=== PATIENT | male | born 1985 | race Caucasian/White ===

== ENCOUNTER → 2017-02-16 | Outpatient (CLI) | payer OTHER ==
--- NOTE | 2017-02-16 21:33 | XR ---
EXAMINATION TYPE: XR ribs LT DATE OF EXAM: 02/16/2017 4:50 PM COMPARISON: NONE HISTORY: Left chest lump TECHNIQUE: 3 views FINDINGS: There is mild linear density at the left lung base there is blunting of left costophrenic a ngle. I see no rib fracture. IMPRESSION: No rib fracture seen. Left pleural effusion and left basilar atelectasis.
--- NOTE | 2017-02-16 21:34 | XR ---
EXAMINATION TYPE: XR chest 2V DATE OF EXAM: 02/16/2017 4:50 PM COMPARISON: NONE HISTORY: Left side chest lump TECHNIQUE: Frontal and lateral views of the chest are obtained. FINDINGS: Heart and mediastinum are normal. There is linear density at the left lung base and blunti ng of left costophrenic angle. There are no hilar masses. I see no rib fracture. There is no pneumoth orax. IMPRESSION: Left pleural effusion and left basilar atelectasis and infiltrate. Normal heart.
== END | disposition home or self-care (01) ==
LOC: RADXRMAIN 16:30
PROVIDERS: ATTEND Family Medicine
DX: J98.11 Atelectasis (principal); J90 Pleural effusion, not elsewhere classified; R91.8 Other nonspecific abnormal finding of lung field
CPT/HCPCS: 71020

== ENCOUNTER → 2017-02-23 | Outpatient (CLI) | payer OTHER ==
--- NOTE | 2017-02-23 10:02 | US ---
EXAMINATION TYPE: US mass soft tissue chest/back DATE OF EXAM: 02/23/2017 9:32 AM COMPARISON: Xrays in PACS CLINICAL HISTORY: M89.9 Rib leison,R07.81 Rib pain left. Pt states hard, palpable lump left anterior chest x 1 month/ Pt denies pain Calcified appearing mass at area of pt's palpable, left anterior chest= 2.1 x 0.8 cm IMPRESSION: Nonspecific calcified mass.
== END | disposition home or self-care (01) ==
LOC: RADUSWWP 09:20
PROVIDERS: ATTEND Family Medicine
DX: R22.2 Localized swelling, mass and lump, trunk (principal)

== ENCOUNTER → 2017-03-08 | Outpatient (CLI) | payer OTHER ==
--- NOTE | 2017-03-09 11:00 | CT ---
EXAMINATION TYPE: CT chest w con DATE OF EXAM: 03/08/2017 7:29 PM COMPARISON: NONE HISTORY: Left sided anterior chest lump marked by BB. CT DLP: 246.00 mGycm, Automated exposure control for dose reduction was used. CONTRAST: Performed injected with 100 mL of Omnipaque 300. TECHNIQUE: Axial images were obtained at 5 mm thick sections. Reconstructed images are reviewed on [employer] computer in the coronal plane. FINDINGS: Portion of the thyroid visualized is normal. There is a small left pleural effusion. There is a small infiltrate at the left base above the diaphr agm most likely is atelectasis. Right lung appears clear. No enlarged mediastinal or hilar adenopathy is evident. The ascending aorta diameter at the level o f the main pulmonary artery is 2.6 cm. The main pulmonary artery diameter at the bifurcation is 2.2 cm. A BB julio the left anterior chest mid region. Pectoralis muscle is at this level. No underlying mass is evident. No abnormal osseous findings. Limited CT sections are obtained through the upper abdomen. Abdomen is essentially unremarkable. IMPRESSIONS: 1. Small left pleural effusion. 2. Atelectasis left base. Pneumonia is considered less likely. 3. No abnormality at the level marked by the BB.
== END ==
LOC: RADCTMAIN 18:59
PROVIDERS: ATTEND Family Medicine
DX: J90 Pleural effusion, not elsewhere classified (principal); J98.11 Atelectasis
CPT/HCPCS: 71260; Q9967

== ENCOUNTER → 2020-07-09 | Outpatient (CLI) | payer BC, OTHER | END | disposition home or self-care (01) | LOC: LABWHC1 10:42 | PROVIDERS: ATTEND Emergency Medicine | DX: Z20.828 Contact with and (suspected) exposure to other viral communicable diseases (principal) | CPT/HCPCS: U0003; C9803 ==

== ENCOUNTER 2020-08-19 20:57 | Emergency (ER) | payer BC ==
[2020-08-19 21:16] VITALS: RESP 20
--- NOTE | 2020-08-19 22:14 | XR ---
EXAMINATION TYPE: XR foot complete RT DATE OF EXAM: 08/19/2020 COMPARISON: NONE HISTORY: Foot pain TECHNIQUE: 3 views FINDINGS: There is nondisplaced longitudinal fracture of the proximal phalanx of the big toe. Fractur e line extends to the MP joints. There is no dislocation. Metatarsals are intact. IMPRESSION: Acute nondisplaced fracture of the proximal phalanx of the big toe right foot with extens ion to the MP joints.
--- NOTE | 2020-08-19 23:33 | ED ---
General Adult HPI - General Chief complaint: Extremity Injury, Lower Stated complaint: R Foot Injury Time Seen by Provider: 08/19/20 21:19 Source: patient, RN notes reviewed, old records reviewed Mode of arrival: wheelchair Limitations: no limitations - History of Present Illness Initial comments: 35-year-old male patient presents today for evaluation of right foot injury. Patient reports that he dropped 100 pound piece of metal on his foot. Denies ankle pain. Denies any other injury. Reports tetanus is up-to-date. Systemic: Pt denies fatigue, fever/chills, rash. Pt denies weakness, night sweats, weight loss. Neuro: Pt denies headache, visual disturbances, syncope or pre-syncope. HEENT: Pt denies ocular discharge or irritation, otalgia, rhinorrhea, pharyngitis or notable lymphadenopathy. Cardiopulmonary: Pt denies chest pain, SOB, heart palpitations, dyspnea on exertion. Abdominal/GI: Pt denies abdominal pain, n/v/d. : Pt denies dysuria, burning w/ urination, frequency/urgency. Denies new onset urinary or bowel incontinence. MSK: Pt denies myalgia, loss of strength or function in extremities. Neuro: Pt denies new onset weakness, paresthesias. - Related Data Allergies Allergy/AdvReac Type Severity Reaction Status Date / Time No Known Allergies Allergy Verified 08/19/20 21:16 Review of Systems ROS Statement: Those systems with pertinent positive or pertinent negative responses have been documented in the HPI. ROS Other: All systems not noted in ROS Statement are negative. Past Medical History Past Medical History: No Reported History History of Any Multi-Drug Resistant Organisms: None Reported Past Surgical History: Hernia Repair Past Psychological History: No Psychological Hx Reported Smoking Status: Current every day smoker Past Alcohol Use History: None Reported Past Drug Use History: Marijuana General Exam - General Exam Comments Initial Comments: Constitutional: NAD, AOX3, Pt has pleasant affect. HEENT: NC/AT, trachea midline, neck supple, no lymphadenopathy. Posterior pharynx non erythematous, without exudates. External ears appear normal, without discharge. Mucous membranes moist. Eyes PERRLA, EOM intact. There is no scleral icterus. No pallor noted. Cardiopulmonary: RRR, no murmurs, rubs or gallops, no JVD noted. Lungs CTAB in anterior and posterior voss. No peripheral edema. Abdominal exam: Abdomen soft and non-distended. Abdomen non-tender to palpation in all 4 quadrants. Bowel sounds active in LLQ. No hepatosplenomegaly. No ecchymosis Neuro: CN II-XII grossly intact. No nuchal rigidity. No raccon eyes, no valera sign, no hemotympanum. No cervical spinal tenderness. MSK: Tenderness to the dorsal aspect of the left foot. There is a very small abrasion this was explored and irrigated. Using a Q-tip I was able to identify that this is a very superficial abrasion this is not any sort of deep penetrating laceration. There is some soft tissue swelling and some ecchymosis noted on the dorsum of the foot. Patient neurovascularly intact. Distal pulses are intact and equal. Patient will pose any difficulty. Tenderness. No tib- fib tenderness. No posterior calf tenderness bilaterally, homans sign negative bilaterally. Posterior tibialis and radial pulse +2 bilaterally. Sensation intact in upper and lower extremities. Limitations: no limitations Course Vital Signs 08/19/20 08/19/20 21:13 23:47 Temperature 97.8 F 97.6 F Pulse Rate 116 H 85 Respiratory 20 20 Rate Blood Pressure 140/76 152/83 O2 Sat by Pulse 100 98 Oximetry Medical Decision Making - Medical Decision Making 35-year-old male patient presents today for evaluation foot injury. Plain film does reveal a fracture to the base o ocular phalanx of the toe right foot with extension to the MP joint. It was placed in a posterior mold. Neurovascular intact before and after splint placement. Will discharge with outpatient orthopedic follow-up will be nonweightbearing. Case discussed with Dr. Grady. Disposition Clinical Impression: Foot fracture Disposition: HOME SELF-CARE Condition: Stable Instructions (If sedation given, give patient instructions): Foot Fracture in Adults (ED) Additional Instructions: follow up with orthopedic surgeon tomorrow. Do not bear any weight on right lower extremity. Use crutches. Continue to wear splint. Follow-up with primary care provider in 1-2 days. Return to ER with any worsening symptoms. Is patient prescribed a controlled substance at d/c from ED?: No Referrals: Max Mcgraw [Primary Care Provider] - 1-2 days Bon Rodriguez MD [STAFF PHYSICIAN] - 1-2 days
[2020-08-19 23:49] VITALS: BP 152/83; PULSE 85; TEMP 97.6
== END 2020-08-19 23:47 | disposition home or self-care (01) ==
LOC: EC 20:57
DX: S92.414A Nondisplaced fracture of proximal phalanx of right great toe, initial encounter for closed fracture (principal); F17.200 Nicotine dependence, unspecified, uncomplicated; W31.89XA Contact with other specified machinery, initial encounter
CPT/HCPCS: 29515; 99284

== ENCOUNTER → 2021-02-23 | Outpatient (CLI) | payer SELFPAY | END | disposition home or self-care (01) | LOC: LABWHC1 16:24 | PROVIDERS: ATTEND Emergency Medicine | DX: Z20.822 Contact with and (suspected) exposure to COVID-19 (principal) | CPT/HCPCS: U0003; C9803; U0005 ==

== ENCOUNTER → 2021-03-22 | Outpatient (CLI) | payer SELFPAY | END | disposition home or self-care (01) | LOC: LABWHC1 15:45 | PROVIDERS: ATTEND Emergency Medicine | DX: Z20.822 Contact with and (suspected) exposure to COVID-19 (principal) | CPT/HCPCS: U0003; C9803 ==